=== PATIENT | female | born 1985 | race Caucasian/White ===

== ENCOUNTER → 2019-02-06 | Outpatient (REF) | payer OTHER ==
[2019-02-06 13:03] LABS: BASO # 0.1 10^3/uL (0.0-0.2); BASO % 0.8 % (0.0-1.0); EOS # 0.1 10^3/uL (0.0-0.5); EOS % 1.3 % (0.0-3.0); HEMOGLOBIN 14.4 g/dl (12.0-15.5); LYMPH # 2.6 10^3/uL (1.5-5.0); LYMPH % 42.9 % (24.0-44.0); MEAN CORPUSCULAR HGB CONC 32.7 g/dl (32.0-36.5); MEAN CORPUSCULAR VOLUME 94.6 fl (80.0-96.0); MONO # 0.5 10^3/uL (0.0-0.8); MONO % 8.6 % (0.0-5.0); NEUTROPHILS # 2.8 10^3/uL (1.5-8.5); NEUTROPHILS % 46.2 % (36.0-66.0); PLATELET COUNT, AUTOMATED 177 10^3/uL (150-450); RED BLOOD COUNT 4.65 10^6/uL (4.00-5.40)
[2019-02-06 13:38] LABS: ALT/SGPT 19 U/L (12-78); BILIRUBIN,TOTAL 0.4 MG/DL (0.2-1.0); BLOOD UREA NITROGEN 8 MG/DL (7-18); CALCIUM LEVEL 9.2 MG/DL (8.5-10.1); CARBON DIOXIDE LEVEL 30 MEQ/L (21-32); CHLORIDE LEVEL 107 MEQ/L (98-107); CREATININE FOR GFR 0.75 MG/DL (0.55-1.30); GLOMERULAR FILTRATION RATE > 60.0 (>60); GLUCOSE, FASTING 78 MG/DL (70-100); POTASSIUM SERUM 4.3 MEQ/L (3.5-5.1); SODIUM LEVEL 141 MEQ/L (136-145); TOTAL PROTEIN 7.1 GM/DL (6.4-8.2)
== END ==
LOC: M SFHCADAM 11:16
PROVIDERS: ATTEND Family Medicine
DX: R00.2 Palpitations (principal)
CPT/HCPCS: 80053; 84443; 85025; 90471; 90472; 90682; 90715; G0463

== ENCOUNTER → 2019-04-21 | Outpatient (CLI) | payer OTHER ==
--- NOTE | 2019-04-21 15:00 | REP ---
Pelvic sonography: History: Uterine leiomyoma. No comparison study. Findings: Transabdominal and transvaginal scanning are performed. Uterine dimensions overall are 8.3 x 4.2 x 5.2 cm. Endometrial echo is 0.6 cm thick. There are two hypoechoic focal uterine lesions consistent with myometrial fibroids in the anterior uterus. These measure 0.8 x 0.8 x 0.6 cm and 0.9 x 1.0 x 0.6 cm respectively. No free fluid is seen. Right ovary is normal measuring 3.3 x 1.6 x 1.8 cm. There is a 1.8 cm follicle cyst in the right ovary. Doppler flow is present in the right ovary (resistive index is 0.60). The left ovary is normal measuring 2.0 x 1.2 x 1.3 cm. Doppler flow is present in the left ovary (resistive index 0.61). Impression: Two small uterine fibroids. Otherwise unremarkable pelvic sonography.
== END ==
LOC: M WHC 08:02
PROVIDERS: ATTEND Specialist
DX: D25.9 Leiomyoma of uterus, unspecified (principal)

== ENCOUNTER → 2019-09-06 | Outpatient (REF) | payer OTHER ==
[2019-09-06 14:56] LABS: HEMATOCRIT 41.5 % (36.0-47.0); HEMOGLOBIN 13.8 g/dl (12.0-15.5); MEAN CORPUSCULAR HEMOGLOBIN 31.4 pg (27.0-33.0); MEAN CORPUSCULAR HGB CONC 33.3 g/dl (32.0-36.5); MEAN CORPUSCULAR VOLUME 94.3 fl (80.0-96.0); PLATELET COUNT, AUTOMATED 151 10^3/uL (150-450); WHITE BLOOD COUNT 7.6 10^3/uL (4.0-10.0)
[2019-09-06 16:12] LABS: HEPATITIS C VIRUS ABY INDEX 0.3 INDEX (<0.8); HIV 1&2 SCREEN CENTAUR NEGATIVE (NEGATIVE)
[2019-09-06 17:04] LABS: CHLAMYDIA DNA AMPLIFICATION NEGATIVE (NEGATIVE); GC DNA AMPLIFICATION NEGATIVE (NEGATIVE)
== END ==
LOC: M PLALAB 09:16
PROVIDERS: ATTEND Specialist
DX: Z34.01 Encounter for supervision of normal first pregnancy, first trimester (principal)

== ENCOUNTER → 2019-09-13 | Outpatient (CLI) | payer OTHER | LOC: M PLALAB 08:22 | PROVIDERS: ATTEND Specialist | DX: Z34.81 Encounter for supervision of other normal pregnancy, first trimester (principal); Z36.89 Encounter for other specified antenatal screening ==

== ENCOUNTER → 2019-11-01 | Outpatient (REF) | payer OTHER | LOC: M LAB REF 16:20 | PROVIDERS: ATTEND Dermatology | DX: D22.5 Melanocytic nevi of trunk (principal) | CPT/HCPCS: 11102; 88305; G0463 ==

== ENCOUNTER → 2019-11-06 | Outpatient (CLI) | payer OTHER ==
--- NOTE | 2019-12-11 06:47 | REP ---
OBSTETRIC ULTRASOUND CLINICAL: Anatomical evaluation. COMPARISON: None. TECHNIQUE: Transabdominal obstetrical ultrasound with color Doppler evaluation. FINDINGS: Ultrasound examination demonstrates a single live intrauterine in transverse lie with head to maternal right. motion was appreciated. The placenta was noted anteriorly and grade 0 without evidence for placenta previa or abruption. Cervix measures 3.3 cm in length and appears closed. Amniotic fluid is within normal limits. BIOMETRIC MEASUREMENTS: BPD 42 mm 19 weeks 0 days Abdominal Circumference 135 mm 19 weeks 0 days Humeral Length 28 mm 19 weeks 3 days Head Circumference 140 mm 19 weeks 0 days Femur Length 30 mm 19 weeks 3 days Heart Rate 161 BPM Gestational age by current biometrical measurements 19 weeks 1 day. Estimated weight 274 grams (52nd percentile). Anatomical assessment demonstrates a normal cisterna magna, spine, three-vessel cord, upper and lower extremities, cavum, thalamus, stomach, kidneys/bladder, cord insertion, and face/lips. IMPRESSION: * Single live intrauterine in transverse lie demonstrating appropriate estimated weight. MTDD
== END ==
LOC: M WHC 07:58
PROVIDERS: ATTEND Advanced Practice Midwife
DX: Z34.82 Encounter for supervision of other normal pregnancy, second trimester (principal)

== ENCOUNTER → 2019-11-24 | Outpatient (CLI) | payer OTHER ==
--- NOTE | 2019-12-15 11:54 | REP ---
OB ULTRASOUND HISTORY: Follow-up anatomy screening. TECHNIQUE: Real-time ultrasound evaluation of gravid uterus performed. There is a single live intrauterine . The estimated gestational age is 21 weeks 4 days. Estimated date of confinement (EDC) 04/01/2020. Todays measurements indicate appropriate growth. MEASUREMENTS: BPD 51 mm 21 weeks 2 days = 43rd percentile HC 192 mm 21 weeks 3 days = 46th percentile AC 165 mm 21 weeks 4 days = 49th percentile Femur Length 38 mm 22 weeks 0 days = 60th percentile HC to AC ratio 1.16 Within normal range of 1.05 to 1.24 Estimated Weight 445 g 48th percentile position is cephalic. Placenta is anterior and grade 1 with no previa or abruption. heart rate 149 beats per minute. Amniotic fluid appears within normal limits. Visualized anatomy today includes facial structures, four chamber heart, ventricular outflow tracts, stomach, kidneys, bladder, cord insertion, and three-vessel cord, which are all grossly unremarkable. The cervix is closed and measures 3.6 cm in length. MTDD
== END ==
LOC: M WHC 06:27
PROVIDERS: ATTEND Obstetrics & Gynecology
DX: Z36.2 Encounter for other antenatal screening follow-up (principal); Z3A.21 21 weeks gestation of pregnancy

== ENCOUNTER → 2020-12-05 | Outpatient (REF) | payer OTHER ==
[2020-12-05 13:52] LABS: BASO % 0.6 % (0.0-1.0); EOS # 0.1 10^3/uL (0.0-0.5); EOS % 1.3 % (0.0-3.0); HEMATOCRIT 43.3 % (36.0-47.0); HEMOGLOBIN 13.8 g/dl (12.0-15.5); LYMPH # 2.5 10^3/uL (1.5-5.0); LYMPH % 38.6 % (24.0-44.0); MEAN CORPUSCULAR HEMOGLOBIN 29.2 pg (27.0-33.0); MEAN CORPUSCULAR HGB CONC 31.9 g/dl (32.0-36.5); MEAN CORPUSCULAR VOLUME 91.7 fl (80.0-96.0); MONO # 0.6 10^3/uL (0.0-0.8); MONO % 9.1 % (2.0-8.0); NEUTROPHILS # 3.2 10^3/uL (1.5-8.5); NEUTROPHILS % 50.1 % (36.0-66.0); PLATELET COUNT, AUTOMATED 191 10^3/uL (150-450); RED BLOOD COUNT 4.72 10^6/uL (4.00-5.40); WHITE BLOOD COUNT 6.4 10^3/uL (4.0-10.0)
[2020-12-05 14:29] LABS: ALBUMIN 3.7 GM/DL (3.2-5.2); ALT/SGPT 24 U/L (12-78); BILIRUBIN,TOTAL 0.5 MG/DL (0.2-1.0); BLOOD UREA NITROGEN 10 MG/DL (7-18); CALCIUM LEVEL 9.1 MG/DL (8.5-10.1); CARBON DIOXIDE LEVEL 27 MEQ/L (21-32); CHLORIDE LEVEL 108 MEQ/L (98-107); CREATININE FOR GFR 0.81 MG/DL (0.55-1.30); GLOMERULAR FILTRATION RATE > 60.0 (>60); GLUCOSE, FASTING 71 MG/DL (70-100); POTASSIUM SERUM 4.8 MEQ/L (3.5-5.1); SODIUM LEVEL 142 MEQ/L (136-145); TOTAL PROTEIN 6.9 GM/DL (6.4-8.2)
== END ==
LOC: M SFHCADAM 09:31
PROVIDERS: ATTEND Family Medicine
DX: Z00.00 Encounter for general adult medical examination without abnormal findings (principal)
CPT/HCPCS: 80053; 84443; 85025; G0463